=== PATIENT | female | born 1945 | race American Indian/Alaskan Native ===

== ENCOUNTER 2018-02-23 14:34 | Inpatient (IN) | payer MEDICARE, BC, OTHER ==
[2018-02-23 14:35] VITALS: BMI 35.6
--- NOTE | 2018-02-23 15:42 | ED PDOC ---
Arrival/HPI - General Chief Complaint: Abdominal Pain Time Seen by Provider: 02/23/18 14:48 Historian: Patient - History of Present Illness Narrative History of Present Illness (Text): 02/23/18 15:35 73yo female with pmhx of hypertension, hypothyroid, Diabetes present with complaint RUQ abdominal pain that radiates to her back x 4days. States she vomited once on Monday. Her pain was colicky in the beginning, but now constant. +Nausea. States she had a normal BM today. She is s/p cholecystectomy. she denies fever, chills, diarrhea, constipation, urinary symptoms, chest pain, hematemesis, hematochezia, melena, sick contact, any other complaint. Past Medical History - Provider Review Nursing Documentation Reviewed: Yes - Cardiac Hx Hypertension: Yes - Endocrine/Metabolic Hx Hypothyroidism: Yes - Musculoskeletal/Rheumatological Hx Falls: No - Psychiatric Hx Depression: No Hx Emotional Abuse: No Hx Physical Abuse: No Hx Substance Use: No - Past Surgical History Past Surgical History: No Previous - Surgical History Hx Cholecystectomy: Yes (38 yrs ago) - Suicidal Assessment Feels Threatened In Home Enviroment: No Family/Social History - Physician Review Nursing Documentation Reviewed: Yes Family/Social History: Unknown Family HX Smoking Status: Former Smoker Hx Alcohol Use: No Hx Substance Use: No Hx Substance Use Treatment: No Allergies/Home Meds Allergies/Adverse Reactions: Allergies No Known Allergies Allergy (Verified 02/23/18 15:21) Home Medications: Home Meds Medication Instructions Recorded Confirmed Enalapril Maleate 10 mg PO DAILY 06/06/15 06/06/15 Levothyroxine [Synthroid] 50 mcg PO DAILY 06/06/15 06/06/15 Nifedipine [Nifedical Xl] 30 mg PO DAILY 06/06/15 06/06/15 metFORMIN [glucOPHAGE] 02/23/18 Review of Systems - Physician Review All systems were reviewed & negative as marked: Yes - Review of Systems Constitutional: Normal Eyes: Normal ENT: Normal Respiratory: Normal Cardiovascular: Normal Gastrointestinal: Abdominal Pain, Nausea. absent: Constipation, Diarrhea, Vomiting, Hematochezia, Hematemesis Genitourinary Female: Normal Musculoskeletal: Normal Skin: Normal Neurological: Normal Endocrine: Normal Hemo/Lymphatic: Normal Psychiatric: Normal Physical Exam Vital Signs Reviewed: Yes Vital Signs Temp Pulse Resp BP Pulse Ox 02/23/18 22:15 98.2 F 54 L 18 161/77 H 98 02/23/18 22:02 98.9 F 87 18 132/63 96 02/23/18 19:07 98.7 F 82 20 130/53 L 96 02/23/18 15:20 98.8 F 77 18 121/54 L 97 Temperature: Afebrile Blood Pressure: Normal Pulse: Regular Respiratory Rate: Normal Appearance: Positive for: Well-Appearing, Non-Toxic, Comfortable Pain Distress: None Mental Status: Positive for: Alert and Oriented X 3 - Systems Exam Head: Present: Atraumatic, Normocephalic Pupils: Present: PERRL Extroacular Muscles: Present: EOMI Conjunctiva: Present: Normal Mouth: Present: Moist Mucous Membranes Neck: Present: Normal Range of Motion Respiratory/Chest: Present: Clear to Auscultation, Good Air Exchange. No: Respiratory Distress, Accessory Muscle Use Cardiovascular: Present: Regular Rate and Rhythm, Normal S1, S2. No: Murmurs Abdomen: Present: Normal Bowel Sounds, Other (soft). No: Tenderness, Distention , Peritoneal Signs, Rebound, Guarding, McBurney's Point Tender, Rovsing's Sign Present Back: Present: Normal Inspection Upper Extremity: Present: Normal Inspection. No: Cyanosis, Edema Lower Extremity: Present: Normal Inspection. No: Edema Neurological: Present: GCS=15, CN II-XII Intact, Speech Normal Skin: Present: Warm, Dry, Normal Color. No: Rashes Psychiatric: Present: Alert, Oriented x 3, Normal Insight, Normal Concentration Medical Decision Making ED Course and Treatment: 02/23/18 15:43 73yo female who present with complaint of RUQ pain that radiates to her back. Her PE was benign. She states she feels the pain inside. Labs VBG EKG Blood culture Zofran, Pepcid Abdominal/pelvic CT Will reassess 02/23/18 23:38 EKG NSR @ 77bpm with no ST changes. Normal interval Lab was noted with elevated LFt, alk phos, LED and bili Lactate of 2.9 was noted, but pt does not meet SIR criteria. Hepatic panel and hepatic US was added Abdominal/Pelvic CT IMPRESSION: Mild intrahepatic and extrahepatic biliary ductal dilatation noted new compared to the previous exam. The possibility of common bile duct stone cannot be excluded. If clinically warranted further assessment by MRCP is suggested. Otherwise no evidence of acute pathology in the abdomen and pelvis as described above. Prominent sized uterus with small amount of fluid in the endometrial cavity. If clinically warranted non emergent ultrasound examination of the pelvis may be obtained for further assessment. Hepatic US IMPRESSION: No acute findings related to/accounting for the clinical presentation. Additional benign and/or incidental findings described above. Pt will be admitted for further evaluation. Result was FLAKO Shaw and she requested that pt be admitted to Dr. castro and Dr. Whelan consult. Case was DW Dr. castro and he accepted pt for admission Case was FLAKO Whelan Result and plan was DW the pt and she agreed 02/23/18 23:50 - Lab Interpretations Lab Results: 02/23/18 16:30 02/23/18 16:30 Lab Results 02/23/18 16:30: Sodium 142, Chloride 102, Potassium 3.9, Carbon Dioxide 31, Anion Gap 13, BUN 15, Creatinine 0.8, Est GFR ( Amer) > 60, Est GFR (Non- Af Amer) > 60, Random Glucose 175 H, Calcium 9.5, Total Bilirubin 3.0 H, AST 550 H, ALT 374 H, Alkaline Phosphatase 228 H, Lactate Dehydrogenase 1997 H, Total Creatine Kinase 45, Troponin I < 0.01, Total Protein 7.4, Albumin 4.2, Globulin 3.3, Albumin/Globulin Ratio 1.3, Amylase 65, Lipase 69 02/23/18 16:30: PT 12.7 H, INR 1.11, APTT 26.5 02/23/18 16:30: WBC 7.1 D, RBC 4.43, Hgb 12.3, Hct 37.2, MCV 84.0, MCH 27.8, MCHC 33.1, RDW 14.7 H, Plt Count 241, MPV 9.7, Gran % 70.1 H, Lymph % (Auto) 20.3 L, [place] % (Auto) 9.4 H, Eos % (Auto) 0.1 L, Baso % (Auto) 0.1, Gran # 4.97 , Lymph # (Auto) 1.4, [place] # (Auto) 0.7 H, Eos # (Auto) 0.0, Baso # (Auto) 0.01 02/23/18 16:28: pO2 49, VBG pH 7.33, VBG pCO2 56.0, VBG HCO3 29.5 H, VBG Total CO2 31.2 H, VBG O2 Sat (Calc) 80.9 H, VBG Base Excess 2.3 H, VBG Potassium 3.5 L , Sodium 141.0, Chloride 104.0, Glucose 180 H, Lactate 2.9 H, FiO2 21.0, Venous Blood Potassium 3.5 L - RAD Interpretation Radiology Orders: 02/23/18 15:34 ABD & PELVIS IV CONTRAST ONLY [CT] Stat 02/23/18 16:56 HEPATIC [US] Stat - Medication Orders Current Medication Orders: Discontinued Medications Famotidine (Pepcid) 20 mg IVP STAT STA Stop: 02/23/18 15:34 Last Admin: 02/23/18 16:27 Dose: 20 mg IVP Administration Document 02/23/18 16:27 OCS (Rec: 02/23/18 16:27 [id number] Charges for Administration # of IVP Administrations 1 Sodium Chloride (Sodium Chloride 0.9%) 1,000 mls @ 250 mls/hr IV .Q4H ONE Stop: 02/23/18 19:43 Last Admin: 02/23/18 16:27 Dose: 250 mls/hr eMAR Start Stop Document 02/23/18 16:27 OCS (Rec: 02/23/18 16:27 [facility]CS [id number]) Intravenous Solution Start Date 02/23/18 Start Time 16:27 Ondansetron HCl (Zofran Inj) 4 mg IVP STAT STA Stop: 02/23/18 15:34 Last Admin: 02/23/18 16:27 Dose: 4 mg IVP Administration Document 02/23/18 16:27 OCS (Rec: 02/23/18 16:27 OCS [id number]) Charges for Administration # of IVP Administrations 1 Oxycodone/Acetaminophen (Percocet 5/325 Mg Tab) 1 tab PO STAT STA Stop: 02/23/18 19:28 Last Admin: 02/23/18 20:40 Dose: 1 tab MAR Pain Assessment Document 02/23/18 20:40 OCS (Rec: 02/23/18 20:40 [facility]CS [id number]) Pain Reassessment Is this a pain reassessment? Yes Sleep Is patient sleeping during reassessment? No Presence of Pain Presence of Pain Yes Pain Scale Used Pain Scale Used Numeric Location Left, Right or Bilateral Right Pain Location Body Site Abdomen Description Description Constant Intensity of Pain at present 8 Pain Behavior Crying Grasping Site Facial Grimacing Aggravating Factors ADL's Disposition/Present on Arrival - Present on Arrival Any Indicators Present on Arrival: No History of DVT/PE: No History of Uncontrolled Diabetes: No Urinary Catheter: No History of Decub. Ulcer: No History Surgical Site Infection Following: None - Disposition Have Diagnosis and Disposition been Completed?: Yes Diagnosis: Abnormal LFTs, Dilation of biliary tract, Abdominal pain Disposition: HOSPITALIZED Disposition Time: 20:00 Patient Plan: Admission Patient Problems: Current Active Problems Problem Status Onset Abdominal pain Acute Abnormal LFTs Acute Dilation of biliary tract Acute Condition: STABLE
[2018-02-23] MEDS ORDERED: Sodium Chloride 0.9% 1,000 ML IV ONE (15:44)
[2018-02-23 16:32] LABS: VENOUS BLOOD GAS BASE EXCESS 2.3 mmol/L (0.0-2.0); VENOUS BLOOD GAS PO2 49 mm/Hg (30-55); VENOUS BLOOD PH 7.33 (7.32-7.43)
[2018-02-23 16:38] LABS: BASO # 0.01 K/mm3 (0.0-2.0); BASO % 0.1 % (0.0-3.0); EOS % 0.1 % (1.5-5.0); GRAN # 4.97 (1.4-6.5); GRAN % 70.1 % (50.0-68.0); HEMOGLOBIN 12.3 g/dL (12.0-16.0); LYMPH # 1.4 (1.2-3.4); LYMPH % 20.3 % (22.0-35.0); MEAN CORPUSCULAR HEMOGLOBIN 27.8 pg (25.0-35.0); MEAN CORPUSCULAR HGB CONC 33.1 g/dl (31.0-37.0); MEAN PLATELET VOLUME 9.7 fl (7.0-11.0); MONO # 0.7 (0.1-0.6); MONO % 9.4 % (1.0-6.0); RBC 4.43 10^6/uL (3.5-6.1); RED CELL DISTRIBUTION WIDTH 14.7 % (11.5-14.5); WHITE BLOOD COUNT 7.1 10^3/ul (4.5-11.0)
[2018-02-23 16:43] LABS: INR 1.11; PARTIAL THROMBOPLASTIN TIME 26.5 Seconds (25.1-36.5); PROTHROMBIN TIME 12.7 SECONDS (9.4-12.5)
[2018-02-23 16:44] LABS: ALB/GLOB RATIO 1.3 (1.1-1.8); ALBUMIN 4.2 g/dL (3.0-4.8); ALT/SGPT 374 U/L (7-56); AMYLASE 65 U/L (35-125); AST/SGOT 550 U/L (14-36); BLOOD UREA NITROGEN 15 mg/dL (7-21); CALCIUM 9.5 mg/dL (8.4-10.5); GFR NON-AFRICAN AMERICAN > 60; LIPASE 69 U/L (23-300)
[2018-02-23 16:55] LABS: TROPONIN I < 0.01 ng/mL
[2018-02-23] MEDS ORDERED: Iohexol 350 MG/100 ML VIAL ONE (17:17)
--- NOTE | 2018-02-23 18:27 | US ---
Date of service: 02/23/2018 HISTORY: Elevated LFT COMPARISON: None. TECHNIQUE: Sonographic evaluation of the right upper quadrant of the abdomen. FINDINGS: LIVER: Measures 15.2 cm in length. Hepatopedal blood flow. Fatty infiltration, heterogeneous echo characteristics of the liver. Manifest ultrasonographically as increased echogenicity of the liver parenchyma. No mass. No intrahepatic bile duct dilatation. GALLBLADDER: Status post cholecystectomy. No abnormality is seen in the gallbladder fossa. COMMON BILE DUCT: Measures 12.5 mm. No stones. Dilated duct likely related to prior cholecystectomy. No dilated intrahepatic biliary radicles. PANCREAS: Unremarkable as visualized. No mass. No ductal dilatation. RIGHT KIDNEY: Measures 4.6 x 11.2 cm in length. Normal echogenicity. No calculus, mass, or hydronephrosis. AORTA: Obscured by overlying bowel gas. Non diagnostic assessment of the abdominal aorta IVC: Unremarkable. OTHER FINDINGS: None . IMPRESSION: No acute findings related to/accounting for the clinical presentation. Additional benign and/or incidental findings described above.
[2018-02-23 18:28] LABS: PH,URINE 7.5 (4.7-8.0); URINE BILIRUBIN NEGATIVE (NEGATIVE); URINE BLOOD NEGATIVE (NEGATIVE); URINE GLUCOSE (UA) NEGATIVE (NEGATIVE); URINE LEUKOCYTE ESTERASE NEGATIVE Leu/uL (NEGATIVE); URINE PROTEIN NEGATIVE mg/dL (<30 mg/dL)
[2018-02-23 18:29] LABS: URINE APPEARANCE CLEAR (CLEAR); URINE COLOR YELLOW (YELLOW)
--- NOTE | 2018-02-23 18:54 | CT ---
Date of service: 02/23/2018 PROCEDURE: CT Abdomen and Pelvis with contrast HISTORY: RUQ pain COMPARISON: Comparison is made to the previous study dated 06/06/2015. Comparison is also made with the previous ultrasound dated 02/23/2018 TECHNIQUE: Contrast dose: 100 mL of Omnipaque 350 Radiation dose: Total exam DLP = 1148.9 mGy-cm. This CT exam was performed using one or more of the following dose reduction techniques: Automated exposure control, adjustment of the mA and/or kV according to patient size, and/or use of iterative reconstruction technique. FINDINGS: LOWER THORAX: No evidence of acute pathology at the lung bases. No evidence of pleural effusion. LIVER: Mild hepatomegaly is again noted. There is mild intrahepatic biliary ductal dilatation noted new compared to the previous exam. GALLBLADDER AND BILE DUCTS: Status post cholecystectomy. The common bile duct is mildly dilated. PANCREAS: Unremarkable. No gross lesion or ductal dilatation. SPLEEN: Unremarkable. ADRENALS: Again noted is heterogeneous slightly low-attenuation 1.2 centimeter nodule at the left adrenal gland which has not significantly changed since the previous study likely benign. KIDNEYS AND URETERS: The kidneys enhance symmetrically. No evidence of hydronephrosis. Left renal cyst is again noted measures 2.3 centimeter in the current study. VASCULATURE: Unremarkable. No aortic aneurysm. BOWEL: Unremarkable. No obstruction. No gross mural thickening. APPENDIX: No evidence of appendicitis. PERITONEUM: Unremarkable. No free fluid. No free air. LYMPH NODES: Unremarkable. No enlarged lymph nodes. BLADDER: Unremarkable. REPRODUCTIVE: The uterus is slightly prominent in size. There is small amount of fluid noted in the endometrial cavity of uncertain etiology. BONES: No acute fracture. OTHER FINDINGS: None. IMPRESSION: Mild intrahepatic and extrahepatic biliary ductal dilatation noted new compared to the previous exam. The possibility of common bile duct stone cannot be excluded. If clinically warranted further assessment by MRCP is suggested. Otherwise no evidence of acute pathology in the abdomen and pelvis as described above. Prominent sized uterus with small amount of fluid in the endometrial cavity. If clinically warranted non emergent ultrasound examination of the pelvis may be obtained for further assessment.
[2018-02-23] MEDS ORDERED: Oxycodone/Acetaminophen 5/325 mg Tab PO STA (19:27)
--- NOTE | 2018-02-23 20:58 | CARD ---
APPROVED REPORT Date of service: 02/23/2018 EKG Measurement Heart [id number] <Conclusion> Normal sinus rhythm with sinus arrhythmia Low voltage QRS Borderline ECG
[2018-02-23 23:16] LABS: VENOUS BLOOD GAS BASE EXCESS 0.9 mmol/L (0.0-2.0); VENOUS BLOOD GAS PO2 40 mm/Hg (30-55); VENOUS BLOOD PH 7.34 (7.32-7.43)
[2018-02-24 02:54] LABS: VENOUS BLOOD GAS BASE EXCESS 2.7 mmol/L (0.0-2.0); VENOUS BLOOD GAS PO2 41 mm/Hg (30-55); VENOUS BLOOD PH 7.41 (7.32-7.43)
[2018-02-24] MEDS ORDERED: Sodium Chloride 0.9% 100 ML IV SCH (11:30)
[2018-02-24 11:42] LABS: HEPATITIS B SURFACE AG Negative (NEGATIVE)
[2018-02-24 11:48] LABS: HEPATITIS A IGM NEGATIVE (NEGATIVE); HEPATITIS B CORE AB NEGATIVE (NEGATIVE)
[2018-02-24 12:00] LABS: HEPATITIS C ANTIBODY NEGATIVE (NEGATIVE)
[2018-02-24] MEDS: NIFEdipine 30 mg ER Tab PO SCH (13:36)
[2018-02-24] MEDS: Sodium Chloride 0.9% 1,000 ML IV SCH (13:38)
[2018-02-24 13:54] LABS: BASO # 0.02 K/mm3 (0.0-2.0); BASO % 0.3 % (0.0-3.0); EOS % 0.7 % (1.5-5.0); GRAN # 3.93 (1.4-6.5); GRAN % 64.3 % (50.0-68.0); HEMOGLOBIN 12.3 g/dL (12.0-16.0); LYMPH # 1.5 (1.2-3.4); LYMPH % 23.7 % (22.0-35.0); MEAN CELL VOLUME 82.5 fl (80.0-105.0); MEAN CORPUSCULAR HGB CONC 33.9 g/dl (31.0-37.0); MONO # 0.7 (0.1-0.6); RBC 4.4 10^6/uL (3.5-6.1); RED CELL DISTRIBUTION WIDTH 14.4 % (11.5-14.5); WHITE BLOOD COUNT 6.1 10^3/ul (4.5-11.0)
[2018-02-24 14:24] LABS: ALB/GLOB RATIO 1.2 (1.1-1.8); ALBUMIN 4.2 g/dL (3.0-4.8); ALT/SGPT 855 U/L (7-56); AST/SGOT 688 U/L (14-36); BLOOD UREA NITROGEN 10 mg/dL (7-21); CALCIUM 9.2 mg/dL (8.4-10.5); GFR NON-AFRICAN AMERICAN > 60
[2018-02-24] MEDS: HYDROmorphone 0.5 mg/0.5 ml ISec IVP PRN (14:47)
--- NOTE | 2018-02-24 15:09 | CP.PCM.CON ---
<DeidresoniafeiChristinaChandler - Last Filed: 02/24/18 15:37> History of Present Illness - History of Present Illness History of Present Illness: GI Fellow PGY4, Consult note. Chica Galarza is a very pleasant 73yr young F with hx of DM, HTN presenting with progressive RUQ pain. She states the pain started Monday after eating a meal and resolved. The pain occured again and resolved. The pain again started Monday and has been constant since that time. She states the pain is similar to her previous gallstones when she had it removed 35yrs ago. It can be very severe and radiates to her back. + associated non-bloody vomiting. Denies diarrhea, fever, chills, skin changes, Today, she had some food that made her pain worse. Admits her urine is jesenia color. PMD starting IV fluids. PMHx - as above. Also, ?carotid stenosis her doctor is following. PSHx - Cholecystectomy 35yrs ago. Colonoscopy 10yrs ago, reports it to be normal. FMHx - unremarkable SocHx - quit smoking 3yrs ago. Denies etoh. 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 12pt ROS negative except for above. Past Patient History - Past Social History Smoking Status: Former Smoker - CARDIAC Hx Hypercholesterolemia: Yes Hx Hypertension: Yes - ENDOCRINE/METABOLIC Hx Diabetes Mellitus Type 2: Yes Hx Hypothyroidism: Yes - MUSCULOSKELETAL/RHEUMATOLOGICAL Hx Arthritis: Yes Hx Falls: No - PSYCHIATRIC Hx Depression: No Hx Emotional Abuse: No Hx Physical Abuse: No Hx Substance Use: No - SURGICAL HISTORY Hx Cholecystectomy: Yes (38 yrs ago) Other/Comment: tubal ligataion Meds Allergies/Adverse Reactions: Allergies Allergy/AdvReac Type Severity Reaction Status Date / Time No Known Allergies Allergy Verified 02/23/18 15:21 - Medications Medications: Current Medications Hydromorphone HCl (Dilaudid) 0.5 mg IVP Q4H PRN PRN Reason: Pain, moderate (4-7) Last Admin: 02/24/18 14:47 Dose: 0.5 mg Sodium Chloride (Sodium Chloride 0.9%) 1,000 mls @ 80 mls/hr IV .[id number] THUAN Last Admin: 02/24/18 13:38 Dose: 80 mls/hr Levothyroxine Sodium (Synthroid) 50 mcg PO 0600 THUAN Lisinopril (Zestril) 10 mg PO DAILY [facility] Last Admin: 02/24/18 13:37 Dose: 10 mg Metformin HCl (Glucophage) 500 mg PO BIDWM [facility] Nifedipine (Procardia Xl) 30 mg PO DAILY [facility] Last Admin: 02/24/18 13:36 Dose: 30 mg Ondansetron HCl (Zofran Inj) 4 mg IVP Q8H PRN PRN Reason: Nausea/Vomiting Last Admin: 02/24/18 13:50 Dose: 4 mg Physical Exam - Constitutional Appears: Non-toxic, No Acute Distress Additional comments: colicky - Head Exam Head Exam: NORMAL INSPECTION - Eye Exam Eye Exam: Normal appearance, Scleral icterus Pupil Exam: NORMAL ACCOMODATION - ENT Exam ENT Exam: Mucous Membranes Moist, Normal Exam - Respiratory Exam Respiratory Exam: Clear to Auscultation Bilateral, NORMAL BREATHING PATTERN - Cardiovascular Exam Cardiovascular Exam: REGULAR RHYTHM, +S1, +S2 - GI/Abdominal Exam GI & Abdominal Exam: Normal Bowel Sounds, Soft, Tenderness Additional comments: RUQ tenderness to mild palpation - Extremities Exam Extremities exam: Positive for: normal inspection - Neurological Exam Neurological exam: Alert, Oriented x3 - Psychiatric Exam Psychiatric exam: Normal Affect, Normal Mood - Skin Skin Exam: Dry, Normal Color Results - Vital Signs Recent Vital Signs: Last Vital Signs Temp 98.6 F 02/24/18 07:46 Pulse 83 02/24/18 13:37 Resp 18 02/24/18 07:46 BP 152/64 H 02/24/18 13:37 Pulse Ox 95 02/24/18 07:46 - Labs Result Diagrams: 02/24/18 13:50 02/24/18 13:00 Labs: Laboratory Results - last 24 hr 02/23/18 02/23/18 02/24/18 18:25 23:08 02:30 WBC RBC Hgb Hct MCV MCH MCHC RDW Plt Count MPV Gran % Lymph % (Auto) Bates % (Auto) Eos % (Auto) Baso % (Auto) Gran # Lymph # (Auto) Bates # (Auto) Eos # (Auto) Baso # (Auto) pO2 40 41 VBG pH 7.34 7.41 VBG pCO2 51.0 44.0 VBG HCO3 27.5 27.9 VBG Total CO2 29.1 H 29.3 H VBG O2 Sat (Calc) 71.0 H 75.6 H VBG Base Excess 0.9 2.7 H VBG Potassium 3.6 3.5 L Sodium 139.0 137.0 Chloride 102.0 102.0 Glucose 157 H 160 H Lactate 2.0 1.7 FiO2 21.0 21.0 Potassium Carbon Dioxide Anion Gap BUN Creatinine Est GFR ( Amer) Est GFR (Non-Af Amer) POC Glucose (mg/dL) Random Glucose Calcium Phosphorus Magnesium Total Bilirubin AST ALT Alkaline Phosphatase Total Protein Albumin Globulin Albumin/Globulin Ratio Venous Blood Potassium 3.6 3.5 L Urine Color Yellow Urine Appearance Clear Urine pH 7.5 Ur Specific [place] 1.015 Urine Protein Negative Urine Glucose (UA) Negative Urine Ketones Negative Urine Blood Negative Urine Nitrate Negative Urine Bilirubin Negative Urine Urobilinogen 4.0 H Ur Leukocyte Esterase Negative 02/24/18 02/24/18 02/24/18 06:41 11:13 13:00 WBC RBC Hgb Hct MCV MCH MCHC RDW Plt Count MPV Gran % Lymph % (Auto) Bates % (Auto) Eos % (Auto) Baso % (Auto) Gran # Lymph # (Auto) Bates # (Auto) Eos # (Auto) Baso # (Auto) pO2 VBG pH VBG pCO2 VBG HCO3 VBG Total CO2 VBG O2 Sat (Calc) VBG Base Excess VBG Potassium Sodium 137 Chloride 98 Glucose Lactate FiO2 Potassium 3.1 L Carbon Dioxide 28 Anion Gap 14 BUN 10 Creatinine 0.7 Est GFR ( Amer) > 60 Est GFR (Non-Af Amer) > 60 POC Glucose (mg/dL) 132 H 169 H Random Glucose 190 H Calcium 9.2 Phosphorus 3.6 Magnesium 2.1 Total Bilirubin 5.8 H AST 688 H D ALT 855 H Alkaline Phosphatase 283 H D Total Protein 7.5 Albumin 4.2 Globulin 3.4 Albumin/Globulin Ratio 1.2 Venous Blood Potassium Urine Color Urine Appearance Urine pH Ur Specific [place] Urine Protein Urine Glucose (UA) Urine Ketones Urine Blood Urine Nitrate Urine Bilirubin Urine Urobilinogen Ur Leukocyte Esterase 02/24/18 13:50 WBC 6.1 RBC 4.40 Hgb 12.3 Hct 36.3 MCV 82.5 MCH 28.0 MCHC 33.9 RDW 14.4 Plt Count 234 MPV 10.0 Gran % 64.3 Lymph % (Auto) 23.7 Bates % (Auto) 11.0 H Eos % (Auto) 0.7 L Baso % (Auto) 0.3 Gran # 3.93 Lymph # (Auto) 1.5 Bates # (Auto) 0.7 H Eos # (Auto) 0.0 Baso # (Auto) 0.02 pO2 VBG pH VBG pCO2 VBG HCO3 VBG Total CO2 VBG O2 Sat (Calc) VBG Base Excess VBG Potassium Sodium Chloride Glucose Lactate FiO2 Potassium Carbon Dioxide Anion Gap BUN Creatinine Est GFR ( Amer) Est GFR (Non-Af Amer) POC Glucose (mg/dL) Random Glucose Calcium Phosphorus Magnesium Total Bilirubin AST ALT Alkaline Phosphatase Total Protein Albumin Globulin Albumin/Globulin Ratio Venous Blood Potassium Urine Color Urine Appearance Urine pH Ur Specific [place] Urine Protein Urine Glucose (UA) Urine Ketones Urine Blood Urine Nitrate Urine Bilirubin Urine Urobilinogen Ur Leukocyte Esterase Assessment & Plan - Assessment and Plan (Free Text) Assessment: 73F with hx of cholecystectomy presenting with RUQ abdominal pain and elevated liver tests. #Acute abdominal pain #Elevated liver enzymes #DM #HTN #Hx of Cholecystectomy #Elevated LDH PLAN: -Unclear etiology of presentation. -MRCP/MRI to better define ampulla anatomy -Follow liver tests -Order direct bili, repeat LDH -Hold metformin (recent contrast) -NPO -IVF, pain mngmt per primary - Date & Time Date: 02/24/18 Time: 15:37 <Rebecca Whelan V - Last Filed: 02/24/18 21:35> Meds - Medications Medications: Current Medications Hydromorphone HCl (Dilaudid) 0.5 mg IVP Q4H PRN PRN Reason: Pain, moderate (4-7) Last Admin: 02/24/18 14:47 Dose: 0.5 mg Sodium Chloride (Sodium Chloride 0.9%) 1,000 mls @ 80 mls/hr IV .[id number] THUAN Last Admin: 02/24/18 13:38 Dose: 80 mls/hr Potassium Chloride (Potassium Chloride 10 Meq/100 Ml) 10 meq in 100 mls @ 50 mls/hr IVPB Q2H THUAN Stop: 02/24/18 22:29 Levothyroxine Sodium (Synthroid) 50 mcg PO 0600 [facility] Lisinopril (Zestril) 10 mg PO DAILY THUAN Last Admin: 02/24/18 13:37 Dose: 10 mg Nifedipine (Procardia Xl) 30 mg PO DAILY [facility] Last Admin: 02/24/18 13:36 Dose: 30 mg Ondansetron HCl (Zofran Inj) 4 mg IVP Q8H PRN PRN Reason: Nausea/Vomiting Last Admin: 02/24/18 13:50 Dose: 4 mg Results - Vital Signs Recent Vital Signs: Last Vital Signs Temp 99.4 F 02/24/18 17:30 Pulse 114 H 02/24/18 17:30 Resp 20 02/24/18 17:30 BP 123/56 L 02/24/18 17:30 Pulse Ox 91 L 02/24/18 17:30 - Labs Result Diagrams: 02/24/18 13:50 02/24/18 13:00 Labs: Laboratory Results - last 24 hr 02/23/18 02/24/18 02/24/18 23:08 02:30 06:41 WBC RBC Hgb Hct MCV MCH MCHC RDW Plt Count MPV Gran % Lymph % (Auto) Bates % (Auto) Eos % (Auto) Baso % (Auto) Gran # Lymph # (Auto) Bates # (Auto) Eos # (Auto) Baso # (Auto) pO2 40 41 VBG pH 7.34 7.41 VBG pCO2 51.0 44.0 VBG HCO3 27.5 27.9 VBG Total CO2 29.1 H 29.3 H VBG O2 Sat (Calc) 71.0 H 75.6 H VBG Base Excess 0.9 2.7 H VBG Potassium 3.6 3.5 L Sodium 139.0 137.0 Chloride 102.0 102.0 Glucose 157 H 160 H Lactate 2.0 1.7 FiO2 21.0 21.0 Potassium Carbon Dioxide Anion Gap BUN Creatinine Est GFR ( Amer) Est GFR (Non-Af Amer) POC Glucose (mg/dL) 132 H Random Glucose Calcium Phosphorus Magnesium Total Bilirubin Direct Bilirubin AST ALT Alkaline Phosphatase Lactate Dehydrogenase Total Protein Albumin Globulin Albumin/Globulin Ratio Venous Blood Potassium 3.6 3.5 L 02/24/18 02/24/18 02/24/18 11:13 13:00 13:50 WBC 6.1 RBC 4.40 Hgb 12.3 Hct 36.3 MCV 82.5 MCH 28.0 MCHC 33.9 RDW 14.4 Plt Count 234 MPV 10.0 Gran % 64.3 Lymph % (Auto) 23.7 Bates % (Auto) 11.0 H Eos % (Auto) 0.7 L Baso % (Auto) 0.3 Gran # 3.93 Lymph # (Auto) 1.5 Bates # (Auto) 0.7 H Eos # (Auto) 0.0 Baso # (Auto) 0.02 pO2 VBG pH VBG pCO2 VBG HCO3 VBG Total CO2 VBG O2 Sat (Calc) VBG Base Excess VBG Potassium Sodium 137 Chloride 98 Glucose Lactate FiO2 Potassium 3.1 L Carbon Dioxide 28 Anion Gap 14 BUN 10 Creatinine 0.7 Est GFR ( Amer) > 60 Est GFR (Non-Af Amer) > 60 POC Glucose (mg/dL) 169 H Random Glucose 190 H Calcium 9.2 Phosphorus 3.6 Magnesium 2.1 Total Bilirubin 5.8 H Direct Bilirubin 3.9 H AST 688 H D ALT 855 H Alkaline Phosphatase 283 H D Lactate Dehydrogenase 2031 H Total Protein 7.5 Albumin 4.2 Globulin 3.4 Albumin/Globulin Ratio 1.2 Venous Blood Potassium 02/24/18 02/24/18 16:11 17:34 WBC RBC Hgb Hct MCV MCH MCHC RDW Plt Count MPV Gran % Lymph % (Auto) Bates % (Auto) Eos % (Auto) Baso % (Auto) Gran # Lymph # (Auto) Bates # (Auto) Eos # (Auto) Baso # (Auto) pO2 VBG pH VBG pCO2 VBG HCO3 VBG Total CO2 VBG O2 Sat (Calc) VBG Base Excess VBG Potassium Sodium Chloride Glucose Lactate FiO2 Potassium Carbon Dioxide Anion Gap BUN Creatinine Est GFR ( Amer) Est GFR (Non-Af Amer) POC Glucose (mg/dL) 157 H 129 H Random Glucose Calcium Phosphorus Magnesium Total Bilirubin Direct Bilirubin AST ALT Alkaline Phosphatase Lactate Dehydrogenase Total Protein Albumin Globulin Albumin/Globulin Ratio Venous Blood Potassium Attending/Attestation - Attestation I have personally seen and examined this patient.: Yes I have fully participated in the care of the patient.: Yes I have reviewed all pertinent clinical information: Yes Notes (Text): This is an addendum to GI consult report dictated by the GI Fellow.The patient was seen and examined earlier. Medical records, lab studies, imagings were reviewed. Last 24 hours events reviewed. Agreed with the above treatment plan as outlined in GI Fellow 's notes with the addition of the following This patient was admitted with right side abdominal pain status post cholecystectomy Dilated CBD The CT scan was reviewed CBD dilation extends towards ampulla. No obvious stricture noted No obvious mass in pancreas noted though the CT done was not with pancreatic protocol Patient was on metformin Received eric contrast Would discontinue metformin LDH significantly elevated Etiology unclear Will repeat LDH Would requested MRCP 02/24/18 21:31
[2018-02-24 15:56] LABS: BILIRUBIN,DIRECT 3.9 mg/dL (0.0-0.4)
--- NOTE | 2018-02-24 23:56 | HP ---
HISTORY OF PRESENT ILLNESS: Ms. Galarza is a 73-year-old female admitted to the hospital with upper abdominal pain, nausea and vomiting. CAT scan of the abdomen showed dilatation of biliary duct. Bilirubin elevated to 3. Denies any bleeding from any site. She is status post cholecystectomy. She has history of hypertension, blood pressure controlled with current medication; hypothyroidism, currently controlled with current medication dose. PAST MEDICAL HISTORY: Hypertension, hypothyroidism. PAST SURGICAL HISTORY: Cholecystectomy 38 years ago. PERSONAL HISTORY: Former smoker. No history of alcohol abuse. ALLERGIES: NO KNOWN DRUG ALLERGIES. HOME MEDICATION: Enalapril 10 mg daily, Synthroid 50 mcg daily, nifedipine 30 mg daily, metformin 500 daily. REVIEW OF SYSTEMS: As per HPI. Rest of 12-point review of systems reviewed, negative. PHYSICAL EXAMINATION: GENERAL: Comfortable in bed, no acute distress. VITAL SIGNS: Temperature 98.2, heart rate 54 per minute, respiratory rate 18 per minute, blood pressure 160/70, pulse ox is 98% room air. HEENT: No pallor. NECK: No lymphadenopathy. CHEST: Air entry present and equal bilateral. No added sounds. CARDIOVASCULAR: S1 and S2 normal. No murmur. No gallop. ABDOMEN: Soft, nontender. No hepatosplenomegaly. EXTREMITIES: No edema. LABORATORY DATA: White count 7.1, hemoglobin 12.3, hematocrit 37.2, platelet 241. Sodium 142, potassium 3.9, BUN 15, creatinine 0.8, glucose 145. ASSESSMENT: Right upper abdominal pain; dilatation of biliary duct, jaundice, Nausea, vomiting hypokalemia PLAN: bilirubin elevated to 3, liver enzymes mildly elevated. Possibility of pancreatic mass cannot be ruled out. GI consultation with Dr. Whelan requested. MRCP ordered for further evaluation and treatment. KCL 2 riders . IV fluid at 80 mL an hour, Zofran p.r.n. for nausea 4 mg IV every 6 hours. We will resume the home meds, nifedipine 30 daily, more Dilaudid 0.5 mg every 4 hours p.r.n. for upper abdominal pain. N.p.o. until further evaluation by GI. We will continue to monitor blood counts closely and chemistries. Belkis Olvera MD [facility]eslie
[2018-02-25] MEDS: Levothyroxine 50 MCG TAB PO SCH (05:22)
[2018-02-25] MEDS: Sodium Chloride 0.9% 1,000 ML IV SCH (05:33)
[2018-02-25 06:55] LABS: BASO # 0.01 K/mm3 (0.0-2.0); BASO % 0.2 % (0.0-3.0); EOS # 0.1 (0.0-0.7); EOS % 1.4 % (1.5-5.0); GRAN # 3.68 (1.4-6.5); GRAN % 62.4 % (50.0-68.0); HEMOGLOBIN 11.2 g/dL (12.0-16.0); LYMPH # 1.1 (1.2-3.4); LYMPH % 19.4 % (22.0-35.0); MEAN CELL VOLUME 82.6 fl (80.0-105.0); MEAN CORPUSCULAR HEMOGLOBIN 27.5 pg (25.0-35.0); MEAN CORPUSCULAR HGB CONC 33.3 g/dl (31.0-37.0); MEAN PLATELET VOLUME 9.6 fl (7.0-11.0); MONO % 16.6 % (1.0-6.0); RBC 4.07 10^6/uL (3.5-6.1); RED CELL DISTRIBUTION WIDTH 14.6 % (11.5-14.5); WHITE BLOOD COUNT 5.9 10^3/ul (4.5-11.0)
[2018-02-25 07:01] LABS: INR 1.37; PROTHROMBIN TIME 15.8 SECONDS (9.4-12.5)
[2018-02-25 07:17] LABS: ALB/GLOB RATIO 1.1 (1.1-1.8); ALBUMIN 3.5 g/dL (3.0-4.8); ALT/SGPT 563 U/L (7-56); AMYLASE 40 U/L (35-125); AST/SGOT 341 U/L (14-36); BLOOD UREA NITROGEN 7 mg/dL (7-21); CALCIUM 8.5 mg/dL (8.4-10.5); GFR NON-AFRICAN AMERICAN > 60; LIPASE 28 U/L (23-300)
--- NOTE | 2018-02-25 09:16 | CP.PCM.PN ---
Subjective - Date & Time of Evaluation Date of Evaluation: 02/25/18 Time of Evaluation: 09:13 - Subjective Subjective: HISTORY OF PRESENT ILLNESS: Ms. Galarza is a 73-year-old female admitted to the hospital with upper abdominal pain, nausea and vomiting. CAT scan of the abdomen showed dilatation of biliary duct. Bilirubin elevated to 3. Denies any bleeding from any site. She is status post cholecystectomy. She has history of hypertension, blood pressure controlled with current medication; hypothyroidism, currently controlled with current medication dose. Bilurubin increased today. MRCP pending. NPO, on IV fluids. PAST MEDICAL HISTORY: Hypertension, hypothyroidism. PAST SURGICAL HISTORY: Cholecystectomy 38 years ago. PERSONAL HISTORY: Former smoker. No history of alcohol abuse. ALLERGIES: NO KNOWN DRUG ALLERGIES. HOME MEDICATION: reviewed. REVIEW OF SYSTEMS: As per HPI. Rest of 12-point review of systems reviewed, negative. PHYSICAL EXAMINATION: GENERAL: Comfortable in bed, no acute distress. VITAL SIGNS: reviewed. HEENT: No pallor. NECK: No lymphadenopathy. CHEST: Air entry present and equal bilateral. No added sounds. CARDIOVASCULAR: S1 and S2 normal. No murmur. No gallop. ABDOMEN: Soft, nontender. No hepatosplenomegaly. EXTREMITIES: No edema. LABORATORY DATA: reviewed. ASSESSMENT: Right upper abdominal pain; dilatation of biliary duct, jaundice, Nausea, vomiting hypokalemia PLAN: bilirubin increased today, liver enzymes improved. GI consultation with Dr. Whelan requested. MRCP ordered for further evaluation and treatment. KCL 2 riders . IV fluid at 80 mL an hour, Zofran p.r.n. for nausea 4 mg IV every 6 hours. We will resume the home meds, nifedipine 30 daily, more Dilaudid 0.5 mg every 4 hours p.r.n. for upper abdominal pain. N.p.o. as per GI. We will continue to monitor blood counts closely and chemistries. CA 19.9 will be ordered. Belkis Olvera MD 02/25/2018 Objective - Vital Signs/Intake and Output Vital Signs (last 24 hours): Temp Pulse Resp BP Pulse Ox 99 F 80 18 118/64 98 02/25/18 08:00 02/25/18 08:00 02/25/18 08:00 02/25/18 08:00 02/25/18 08:00 Intake and Output: 02/25/18 02/25/18 06:59 18:59 Intake Total 120 120 Balance 120 120 - Medications Medications: Current Medications Hydromorphone HCl (Dilaudid) 0.5 mg IVP Q4H PRN PRN Reason: Pain, moderate (4-7) Last Admin: 02/24/18 14:47 Dose: 0.5 mg Sodium Chloride (Sodium Chloride 0.9%) 1,000 mls @ 80 mls/hr IV .[id number] [facility] Last Admin: 02/25/18 05:33 Dose: 80 mls/hr Potassium Chloride (Potassium Chloride 10 Meq/100 Ml) 10 meq in 100 mls @ 50 mls/hr IVPB Q2H [facility] Stop: 02/25/18 13:14 Levothyroxine Sodium (Synthroid) 50 mcg PO 0600 [facility] Last Admin: 02/25/18 05:22 Dose: 50 mcg Lisinopril (Zestril) 10 mg PO DAILY [facility] Last Admin: 02/24/18 13:37 Dose: 10 mg Nifedipine (Procardia Xl) 30 mg PO DAILY [facility] Last Admin: 02/24/18 13:36 Dose: 30 mg Ondansetron HCl (Zofran Inj) 4 mg IVP Q8H PRN PRN Reason: Nausea/Vomiting Last Admin: 02/24/18 13:50 Dose: 4 mg - Labs Labs: 02/25/18 06:00 02/25/18 06:00 PT 15.8 SECONDS (9.4-12.5) H 02/25/18 06:00 INR 1.37 02/25/18 06:00 APTT 26.5 Seconds (25.1-36.5) 02/23/18 16:30
--- NOTE | 2018-02-25 09:49 | CP.PCM.PN ---
<Chandler Del Rosario - Last Filed: 02/25/18 14:33> Subjective - Date & Time of Evaluation Date of Evaluation: 02/25/18 Time of Evaluation: 09:47 - Subjective Subjective: GI Fellow PGY4, progress note. Patient is feeling better today, less abdominal pain. She was able to tolerate diet this AM without pain. Objective - Vital Signs/Intake and Output Vital Signs (last 24 hours): Temp Pulse Resp BP Pulse Ox 99 F 80 18 118/64 98 02/25/18 08:00 02/25/18 08:00 02/25/18 08:00 02/25/18 08:00 02/25/18 08:00 Intake and Output: 02/25/18 02/25/18 06:59 18:59 Intake Total 120 120 Balance 120 120 - Medications Medications: Current Medications Hydromorphone HCl (Dilaudid) 0.5 mg IVP Q4H PRN PRN Reason: Pain, moderate (4-7) Last Admin: 02/24/18 14:47 Dose: 0.5 mg Sodium Chloride (Sodium Chloride 0.9%) 1,000 mls @ 80 mls/hr IV .[id number] [facility] Last Admin: 02/25/18 05:33 Dose: 80 mls/hr Potassium Chloride (Potassium Chloride 10 Meq/100 Ml) 10 meq in 100 mls @ 50 mls/hr IVPB Q2H [facility] Stop: 02/25/18 13:14 Levothyroxine Sodium (Synthroid) 50 mcg PO 0600 [facility] Last Admin: 02/25/18 05:22 Dose: 50 mcg Lisinopril (Zestril) 10 mg PO DAILY [facility] Last Admin: 02/24/18 13:37 Dose: 10 mg Nifedipine (Procardia Xl) 30 mg PO DAILY [facility] Last Admin: 02/24/18 13:36 Dose: 30 mg Ondansetron HCl (Zofran Inj) 4 mg IVP Q8H PRN PRN Reason: Nausea/Vomiting Last Admin: 02/24/18 13:50 Dose: 4 mg - Labs Labs: 02/25/18 06:00 02/25/18 06:00 PT 15.8 SECONDS (9.4-12.5) H 02/25/18 06:00 INR 1.37 02/25/18 06:00 APTT 26.5 Seconds (25.1-36.5) 02/23/18 16:30 - Constitutional Appears: Non-toxic, No Acute Distress - Head Exam Head Exam: NORMAL INSPECTION - Eye Exam Eye Exam: Normal appearance - ENT Exam ENT Exam: Mucous Membranes Moist - Respiratory Exam Respiratory Exam: Clear to Ausculation Bilateral, NORMAL BREATHING PATTERN - Cardiovascular Exam Cardiovascular Exam: REGULAR RHYTHM, +S1, +S2 - GI/Abdominal Exam GI & Abdominal Exam: Soft, Normal Bowel Sounds. absent: Tenderness - Extremities Exam Extremities Exam: Normal Inspection - Neurological Exam Neurological Exam: Alert, Awake, Oriented x3 - Psychiatric Exam Psychiatric exam: Normal Affect, Normal Mood - Skin Skin Exam: Normal Color Assessment and Plan - Assessment and Plan (Free Text) Assessment: 73F with hx of cholecystectomy presenting with RUQ abdominal pain and elevated liver tests. #Acute abdominal pain #Elevated liver enzymes #DM #HTN #Hx of Cholecystectomy #Elevated LDH PLAN: -Unclear etiology of presentation. -MRCP/MRI to better define ampulla anatomy, read is pending -Follow liver tests -Hold metformin (recent contrast) -CLD. NPO after breakfast tomorrow for possible ERCP. -IVF, pain mngmt per primary <Tip,Kovil V - Last Filed: 02/26/18 00:50> Objective - Vital Signs/Intake and Output Vital Signs (last 24 hours): Temp Pulse Resp BP Pulse Ox 97.7 F 70 16 114/53 L 97 02/25/18 15:42 02/25/18 15:42 02/25/18 15:42 02/25/18 15:42 02/25/18 15:42 Intake and Output: 02/25/18 02/26/18 18:59 06:59 Intake Total 540 Balance 540 - Medications Medications: Current Medications Hydromorphone HCl (Dilaudid) 0.5 mg IVP Q4H PRN PRN Reason: Pain, moderate (4-7) Last Admin: 02/24/18 14:47 Dose: 0.5 mg Sodium Chloride (Sodium Chloride 0.9%) 1,000 mls @ 80 mls/hr IV .[id number] [facility] Last Admin: 02/25/18 05:33 Dose: 80 mls/hr Levothyroxine Sodium (Synthroid) 50 mcg PO 0600 [facility] Last Admin: 02/25/18 05:22 Dose: 50 mcg Lisinopril (Zestril) 10 mg PO DAILY [facility] Last Admin: 02/25/18 10:45 Dose: 10 mg Nifedipine (Procardia Xl) 30 mg PO DAILY [facility] Last Admin: 02/25/18 10:46 Dose: 30 mg Ondansetron HCl (Zofran Inj) 4 mg IVP Q8H PRN PRN Reason: Nausea/Vomiting Last Admin: 02/24/18 13:50 Dose: 4 mg - Labs Labs: 02/25/18 06:00 02/25/18 06:00 PT 15.8 SECONDS (9.4-12.5) H 02/25/18 06:00 INR 1.37 02/25/18 06:00 APTT 26.5 Seconds (25.1-36.5) 02/23/18 16:30 Attending/Attestation - Attestation I have personally seen and examined this patient.: Yes I have fully participated in the care of the patient.: Yes I have reviewed all pertinent clinical information, including history, physical exam and plan: Yes Notes (Text): This is an addendum to GI progress report dictated by the GI Fellow.The patient was seen and examined earlier. Medical records, lab studies, imagings were reviewed. Last 24 hours events reviewed. Agreed with the above treatment plan as outlined in GI Fellow 's notes with the addition of the following Patient feeling much better Abdominal pain significantly subsided Mild tenderness on depalpation LFT shows upward trend MRCP preliminary reviewed suggestive of multiple CBD stones Will schedule for ERCP after reviewing the official MRCP report 02/25/18 20:08 02/26/18 00:47
[2018-02-25] MEDS: NIFEdipine 30 mg ER Tab PO SCH (10:46)
--- NOTE | 2018-02-25 16:25 | MRI ---
Date of service: 02/25/2018 PROCEDURE: Magnetic Resonance Cholangiopancreatography HISTORY: COMPARISON: None available. TECHNIQUE: Multiplanar, multisequence MR images of the abdomen were obtained, including heavily T2 weighted MRCP images of the biliary system. Rotating maximum intensity projection images of the biliary system were generated. FINDINGS: MRCP: Common bile duct measures approximately 9 mm in diameter. This is consistent with a history of prior cholecystectomy. There are several filling defect in the distal common bile duct likely representing choledocholithiasis although this is not certain. There is mild intrahepatic biliary ductal dilatation consistent with a history of known obstructive jaundice. LIVER: Normal size, contour and signal intensity. No mass. Mild intrahepatic biliary ductal dilatation is noted. GALLBLADDER: Very mild hepatic steatosis diffusely. SPLEEN: Unremarkable. PANCREAS: Unremarkable. ADRENALS: Unremarkable. KIDNEYS: Left lower pole cortical cyst, 2.5 cm diameter. No hydronephrosis. AORTA: No aneurysm. ASCITES: None. OTHER FINDINGS: None. IMPRESSION: Choledocholithiasis. Mildly dilated common bile duct with intrahepatic biliary dilatation. Prior cholecystectomy. No other significant abnormality.
[2018-02-25] MEDS ORDERED: Potassium Chloride 20 mEq ER Tab PO ONE (17:49)
[2018-02-26] MEDS: Levothyroxine 50 MCG TAB PO SCH (05:30)
[2018-02-26] MEDS: Sodium Chloride 0.9% 1,000 ML IV SCH (05:33)
[2018-02-26 07:23] LABS: BASO # 0.01 K/mm3 (0.0-2.0); BASO % 0.2 % (0.0-3.0); EOS # 0.1 (0.0-0.7); EOS % 2.9 % (1.5-5.0); GRAN # 2.45 (1.4-6.5); GRAN % 55.4 % (50.0-68.0); HEMOGLOBIN 10.9 g/dL (12.0-16.0); LYMPH # 1.4 (1.2-3.4); LYMPH % 31.6 % (22.0-35.0); MEAN CORPUSCULAR HEMOGLOBIN 27.2 pg (25.0-35.0); MEAN CORPUSCULAR HGB CONC 32.7 g/dl (31.0-37.0); MEAN PLATELET VOLUME 10.3 fl (7.0-11.0); MONO # 0.4 (0.1-0.6); MONO % 9.9 % (1.0-6.0); RBC 4.01 10^6/uL (3.5-6.1); RED CELL DISTRIBUTION WIDTH 14.5 % (11.5-14.5); WHITE BLOOD COUNT 4.4 10^3/ul (4.5-11.0)
[2018-02-26 07:34] LABS: INR 1.15; PROTHROMBIN TIME 13.3 SECONDS (9.4-12.5)
[2018-02-26 07:54] LABS: ALB/GLOB RATIO 1.1 (1.1-1.8); ALBUMIN 3.5 g/dL (3.0-4.8); ALT/SGPT 411 U/L (7-56); AST/SGOT 182 U/L (14-36); BLOOD UREA NITROGEN 6 mg/dL (7-21); CALCIUM 8.4 mg/dL (8.4-10.5); GFR NON-AFRICAN AMERICAN > 60
[2018-02-26] MEDS: NIFEdipine 30 mg ER Tab PO SCH (09:13)
--- NOTE | 2018-02-26 09:16 | CP.PCM.PN ---
Subjective - Date & Time of Evaluation Date of Evaluation: 02/26/18 Time of Evaluation: 08:00 - Subjective Subjective: Del[facility] Internal Medicine Resident - Progress note for GI service Patient seen and examined this AM. Found to be lying in bed comfortably. Patient without complaints. She is able to tolerate her diet and without abdominal disco mfort. Objective - Vital Signs/Intake and Output Vital Signs (last 24 hours): Temp Pulse Resp BP Pulse Ox 99.2 F 72 20 120/62 95 02/25/18 21:18 02/25/18 21:18 02/25/18 21:18 02/25/18 21:18 02/25/18 21:18 Intake and Output: 02/26/18 02/26/18 06:59 18:59 Intake Total 640 Balance 640 - Medications Medications: Current Medications Hydromorphone HCl (Dilaudid) 0.5 mg IVP Q4H PRN PRN Reason: Pain, moderate (4-7) Last Admin: 02/24/18 14:47 Dose: 0.5 mg Sodium Chloride (Sodium Chloride 0.9%) 1,000 mls @ 80 mls/hr IV .[id number] [facility] Last Admin: 02/26/18 05:33 Dose: 80 mls/hr Levothyroxine Sodium (Synthroid) 50 mcg PO 0600 [facility] Last Admin: 02/26/18 05:30 Dose: 50 mcg Lisinopril (Zestril) 10 mg PO DAILY [facility] Last Admin: 02/25/18 10:45 Dose: 10 mg Nifedipine (Procardia Xl) 30 mg PO DAILY [facility] Last Admin: 02/25/18 10:46 Dose: 30 mg Ondansetron HCl (Zofran Inj) 4 mg IVP Q8H PRN PRN Reason: Nausea/Vomiting Last Admin: 02/24/18 13:50 Dose: 4 mg - Labs Labs: 02/26/18 06:30 02/26/18 06:30 PT 13.3 SECONDS (9.4-12.5) H 02/26/18 06:30 INR 1.15 02/26/18 06:30 APTT 26.5 Seconds (25.1-36.5) 02/23/18 16:30 - Constitutional Appears: No Acute Distress - Head Exam Head Exam: ATRAUMATIC, NORMAL INSPECTION, NORMOCEPHALIC - Eye Exam Eye Exam: EOMI, PERRL - ENT Exam ENT Exam: Mucous Membranes Moist, Normal Oropharynx - Neck Exam Neck Exam: Full ROM - Respiratory Exam Respiratory Exam: Clear to Ausculation Bilateral, NORMAL BREATHING PATTERN - Cardiovascular Exam Cardiovascular Exam: REGULAR RHYTHM, +S1, +S2 - GI/Abdominal Exam GI & Abdominal Exam: Soft, Normal Bowel Sounds. absent: Tenderness - Back Exam Back Exam: NORMAL INSPECTION. absent: CVA tenderness (L), CVA tenderness (R) - Neurological Exam Neurological Exam: Alert, Awake, Normal Gait, Oriented x3 Neuro motor strength exam: Left Upper Extremity: 5, Right Upper Extremity: 5, Left Lower Extremity: 5, Right Lower Extremity: 5 - Psychiatric Exam Psychiatric exam: Normal Affect, Normal Mood - Skin Skin Exam: Dry, Intact Assessment and Plan - Assessment and Plan (Free Text) Assessment: 73 year old female with past meidcal history significant for spinal stenosis, meniere disease, AAA, CVA, HTN, CHF, and HLD who presented with 2 day history of intermittent bilateral sharp lower quadrant abdominal pain associated with nausea and non bloody emesis. Patient nausae and emesis has since resolved and is able to tolerate diet without abdominal pain at this time. Plan: Acute abdominal Pain Transaminitis DM2 HTN Hx of cholecystetcomy Elevated LDH - Etiology: SBO vs. choledocolithiasis - MRCP/MRI: choledocholithiasis. mildly dilated common bile duct with intrahepatic biliary dilatation measuring 9mm. prior cholecystectomy, mild hepatic steatosis diffusely - LFT trending downward - Continue to monitor liver enzymes - Clear liquid diet - ERCP scheduled for today
[2018-02-26] MEDS ORDERED: Iohexol 240 (50 ml) ONE (14:49)
[2018-02-26] MEDS ORDERED: Indomethacin 50 MG Suppository PR ONE (14:57)
[2018-02-26] MEDS ORDERED: Propofol 10 mg/ml Inj (20 ML) ONE (15:35)
[2018-02-26] MEDS ORDERED: Succinylcholine 200 mg/10 ml Inj IV ONE (15:35)
[2018-02-26] MEDS ORDERED: cefTRIAXone 1 gm 1 GM/100 ML BAG IVPB ONE (16:10)
[2018-02-26] MEDS ORDERED: cefTRIAXone (Rocephin) 1 gm Inj ONE (16:12)
[2018-02-26] MEDS ORDERED: Sodium Chloride 0.9% 1,000 ML IV SCH (17:30)
[2018-02-26] MEDS ORDERED: HYDROmorphone 0.5 mg/0.5 ml ISec ONE (17:40)
[2018-02-26] MEDS: HYDROmorphone 0.5 mg/0.5 ml ISec IVP PRN (17:40)
--- NOTE | 2018-02-26 20:26 | PN ---
DATE: 02/26/2018 SUBJECTIVE: The patient has no complaints of any headaches or dizziness. She says abdominal pain is better. PHYSICAL EXAMINATION VITAL SIGNS: Temperature is 98.2, pulse is 71, blood pressure is 167/70, and respirations 18. GENERAL: The patient is lying in bed, flat, comfortable. HEENT: No oral lesion. Anicteric sclerae. Moist mucosa. NECK: No JVD, adenopathy, or thyromegaly. CARDIOVASCULAR: S1 and S2, regular. No murmurs, rubs, or gallops. LUNGS: Clear to auscultation bilaterally. No wheeze, rales, or rhonchi. ABDOMEN: Bowel sounds are positive, soft, nontender and nondistended. EXTREMITIES: No cyanosis, clubbing or edema. LABORATORY DATA: White count of 4.4, hemoglobin 10.9. Creatinine 0.6. ASSESSMENT: 1. Abdominal pain. 2. Choledocholithiasis with dilated common bile duct. 3. Status post cholecystectomy. 4. Transaminitis. 5. Anemia. 6. Hypertension. 7. Hypothyroidism. PLAN: The patient is currently comfortable. Her abdominal pain is under control with Dilaudid that she is taking. The patient is on IV fluids. The patient would like to continue with Synthroid for hypothyroidism. She is on lisinopril for hypertension. I did speak to Dr. Whelan this morning. The patient is going to have repeat blood work done tomorrow. The patient is going to be on ERCP. William Collins MD
[2018-02-27] MEDS: HYDROmorphone 0.5 mg/0.5 ml ISec IVP PRN (00:09)
[2018-02-27] MEDS: Levothyroxine 50 MCG TAB PO SCH (06:03)
--- NOTE | 2018-02-27 06:27 | CP.PCM.PN ---
Objective - Vital Signs/Intake and Output Vital Signs (last 24 hours): Temp Pulse Resp BP Pulse Ox 98.2 F 71 18 167/70 H 99 02/26/18 18:00 02/26/18 18:00 02/26/18 18:00 02/26/18 18:00 02/26/18 18:00 Intake and Output: 02/26/18 02/27/18 18:59 06:59 Intake Total 0 Balance 0 - Medications Medications: Current Medications Hydromorphone HCl (Dilaudid) 0.5 mg IVP Q4H PRN PRN Reason: Pain, moderate (4-7) Last Admin: 02/27/18 00:09 Dose: 0.5 mg Sodium Chloride (Sodium Chloride 0.9%) 1,000 mls @ 100 mls/hr IV .Q10H [facility] Levothyroxine Sodium (Synthroid) 50 mcg PO 0600 [facility] Last Admin: 02/27/18 06:03 Dose: 50 mcg Lisinopril (Zestril) 10 mg PO DAILY [facility] Last Admin: 02/26/18 09:12 Dose: 10 mg Nifedipine (Procardia Xl) 30 mg PO DAILY [facility] Last Admin: 02/26/18 09:13 Dose: 30 mg Ondansetron HCl (Zofran Inj) 4 mg IVP Q8H PRN PRN Reason: Nausea/Vomiting Last Admin: 02/24/18 13:50 Dose: 4 mg - Labs Labs: 02/26/18 06:30 02/26/18 06:30 PT 13.3 SECONDS (9.4-12.5) H 02/26/18 06:30 INR 1.15 02/26/18 06:30 APTT 26.5 Seconds (25.1-36.5) 02/23/18 16:30
[2018-02-27 07:44] LABS: BASO # 0.01 K/mm3 (0.0-2.0); BASO % 0.2 % (0.0-3.0); EOS # 0.1 (0.0-0.7); EOS % 1.1 % (1.5-5.0); GRAN # 3.01 (1.4-6.5); GRAN % 54.7 % (50.0-68.0); HEMOGLOBIN 10.5 g/dL (12.0-16.0); LYMPH % 35.8 % (22.0-35.0); MEAN CELL VOLUME 82.7 fl (80.0-105.0); MEAN CORPUSCULAR HEMOGLOBIN 27.5 pg (25.0-35.0); MEAN CORPUSCULAR HGB CONC 33.2 g/dl (31.0-37.0); MEAN PLATELET VOLUME 9.6 fl (7.0-11.0); MONO # 0.5 (0.1-0.6); MONO % 8.2 % (1.0-6.0); RBC 3.82 10^6/uL (3.5-6.1); RED CELL DISTRIBUTION WIDTH 14.7 % (11.5-14.5); WHITE BLOOD COUNT 5.5 10^3/ul (4.5-11.0)
[2018-02-27 07:49] LABS: INR 1.1; PROTHROMBIN TIME 12.7 SECONDS (9.4-12.5)
[2018-02-27 07:58] VITALS: PULSE 72; RESP 20; TEMP 98.8; O2SAT 96
[2018-02-27 08:05] LABS: ALB/GLOB RATIO 1.1 (1.1-1.8); ALBUMIN 3.3 g/dL (3.0-4.8); ALT/SGPT 298 U/L (7-56); AST/SGOT 109 U/L (14-36); BLOOD UREA NITROGEN 5 mg/dL (7-21); CALCIUM 8.3 mg/dL (8.4-10.5); GFR NON-AFRICAN AMERICAN > 60
[2018-02-27] MEDS: NIFEdipine 30 mg ER Tab PO SCH (10:14)
[2018-02-27 11:02] VITALS: BP 132/68
--- NOTE | 2018-02-27 12:55 | CP.PCM.DIS ---
<AliaCindy - Last Filed: 02/27/18 13:06> Provider - Provider Date of Admission: 02/23/18 18:20 Attending physician: William Collins MD Primary care physician: Geno Shaw DO Consults: GI: Dr. Whelan Time Spent in preparation of Discharge (in minutes): 35 Hospital Course - Lab Results Lab Results: Micro Results 02/23/18 17:05 Blood-Venous Blood Culture - Preliminary NO GROWTH AFTER 3 DAYS 02/23/18 16:25 Blood-Venous Blood Culture - Preliminary NO GROWTH AFTER 3 DAYS Most Recent Lab Values WBC 5.5 10^3/ul (4.5-11.0) D 02/27/18 07:15 RBC 3.82 10^6/uL (3.5-6.1) 02/27/18 07:15 Hgb 10.5 g/dL (12.0-16.0) L 02/27/18 07:15 Hct 31.6 % (36.0-48.0) L 02/27/18 07:15 MCV 82.7 fl (80.0-105.0) 02/27/18 07:15 MCH 27.5 pg (25.0-35.0) 02/27/18 07:15 MCHC 33.2 g/dl (31.0-37.0) 02/27/18 07:15 RDW 14.7 % (11.5-14.5) H 02/27/18 07:15 Plt Count 228 10^3/uL (120.0-450.0) 02/27/18 07:15 MPV 9.6 fl (7.0-11.0) 02/27/18 07:15 Gran % 54.7 % (50.0-68.0) 02/27/18 07:15 Lymph % (Auto) 35.8 % (22.0-35.0) H 02/27/18 07:15 [place] % (Auto) 8.2 % (1.0-6.0) H 02/27/18 07:15 Eos % (Auto) 1.1 % (1.5-5.0) L 02/27/18 07:15 Baso % (Auto) 0.2 % (0.0-3.0) 02/27/18 07:15 Gran # 3.01 (1.4-6.5) 02/27/18 07:15 Lymph # (Auto) 2.0 (1.2-3.4) 02/27/18 07:15 [place] # (Auto) 0.5 (0.1-0.6) 02/27/18 07:15 Eos # (Auto) 0.1 (0.0-0.7) 02/27/18 07:15 Baso # (Auto) 0.01 K/mm3 (0.0-2.0) 02/27/18 07:15 PT 12.7 SECONDS (9.4-12.5) H 02/27/18 07:15 INR 1.10 02/27/18 07:15 APTT 26.5 Seconds (25.1-36.5) 02/23/18 16:30 pO2 41 mm/Hg (30-55) 02/24/18 02:30 VBG pH 7.41 (7.32-7.43) 02/24/18 02:30 VBG pCO2 44.0 (40-60) 02/24/18 02:30 VBG HCO3 27.9 mmol/l (21-28) 02/24/18 02:30 VBG Total CO2 29.3 mmol.L (22-28) H 02/24/18 02:30 VBG O2 Sat (Calc) 75.6 % (40-65) H 02/24/18 02:30 VBG Base Excess 2.7 mmol/L (0.0-2.0) H 02/24/18 02:30 VBG Potassium 3.5 mmol/L (3.6-5.2) L 02/24/18 02:30 Sodium 137.0 mmol/L (132-148) 02/24/18 02:30 Chloride 102.0 mmol/L (98-107) 02/24/18 02:30 Glucose 160 mg/dl (65-105) H 02/24/18 02:30 Lactate 1.7 mmol/L (0.7-2.1) 02/24/18 02:30 FiO2 21.0 % 02/24/18 02:30 Sodium 140 mmol/L (132-148) 02/27/18 07:15 Potassium 3.5 mmol/L (3.6-5.0) L 02/27/18 07:15 Chloride 109 mmol/L (98-107) H 02/27/18 07:15 Carbon Dioxide 24 mmol/L (21-33) 02/27/18 07:15 Anion Gap 10 (10-20) 02/27/18 07:15 BUN 5 mg/dL (7-21) L 02/27/18 07:15 Creatinine 0.7 mg/dl (0.7-1.2) 02/27/18 07:15 Est GFR ( Amer) > 60 02/27/18 07:15 Est GFR (Non-Af Amer) > 60 02/27/18 07:15 POC Glucose (mg/dL) 232 mg/dL (65-110) H 02/27/18 11:00 Random Glucose 120 mg/dL (70-110) H 02/27/18 07:15 Calcium 8.3 mg/dL (8.4-10.5) L 02/27/18 07:15 Phosphorus 3.2 mg/dL (2.5-4.5) 02/25/18 06:00 Magnesium 2.0 mg/dL (1.7-2.2) 02/25/18 06:00 Total Bilirubin 1.2 mg/dL (0.2-1.3) 02/27/18 07:15 Direct Bilirubin 3.9 mg/dL (0.0-0.4) H 02/24/18 13:00 AST 109 U/L (14-36) H D 02/27/18 07:15 ALT 298 U/L (7-56) H 02/27/18 07:15 Alkaline Phosphatase 200 U/L (38-126) H 02/27/18 07:15 Lactate Dehydrogenase 2031 U/L (333-699) H 02/24/18 13:00 Total Creatine Kinase 45 U/L (35-230) 02/23/18 16:30 Troponin I < 0.01 ng/mL 02/23/18 16:30 Total Protein 6.4 g/dL (5.8-8.3) 02/27/18 07:15 Albumin 3.3 g/dL (3.0-4.8) 02/27/18 07:15 Globulin 3.1 gm/dL 02/27/18 07:15 Albumin/Globulin Ratio 1.1 (1.1-1.8) 02/27/18 07:15 Amylase 40 U/L (35-125) 02/25/18 06:00 Lipase 28 U/L (23-300) 02/25/18 06:00 CA 19-9 Antigen 62.4 U/mL (0-37) H 02/25/18 07:00 Venous Blood Potassium 3.5 mmol/L (3.6-5.2) L 02/24/18 02:30 Urine Color Yellow (YELLOW) 02/23/18 18:25 Urine Appearance Clear (CLEAR) 02/23/18 18:25 Urine pH 7.5 (4.7-8.0) 02/23/18 18:25 Ur Specific Saxis 1.015 (1.005-1.035) 02/23/18 18:25 Urine Protein Negative mg/dL (<30 mg/dL) 02/23/18 18:25 Urine Glucose (UA) Negative mg/dL (NEGATIVE) 02/23/18 18:25 Urine Ketones Negative mg/dL (NEGATIVE) 02/23/18 18:25 Urine Blood Negative (NEGATIVE) 02/23/18 18:25 Urine Nitrate Negative (NEGATIVE) 02/23/18 18:25 Urine Bilirubin Negative (NEGATIVE) 02/23/18 18:25 Urine Urobilinogen 4.0 E.U./dL (<1 E.U./dL) H 02/23/18 18:25 Ur Leukocyte Esterase Negative Gee/uL (NEGATIVE) 02/23/18 18:25 Hepatitis A IgM Ab Negative (NEGATIVE) 02/23/18 16:30 Hep Bs Antigen Negative (NEGATIVE) 02/23/18 16:30 Hep B Core IgM Ab Negative (NEGATIVE) 02/23/18 16:30 Hepatitis C Antibody Negative (NEGATIVE) 02/23/18 16:30 - Hospital Course Hospital Course: This is a 73yo AA female with past medical history of HTN, hypothyroidism, cholecystectomy who was admitted for abdominal pain with transaminitis. She was evaluated by GI and was found to have choledocolithiasis with dilated CBD on MRCP. Pain was controlled with IV pain medication. She subsequently had ERCP done with biliary spincterotomy without stent placement. Her LFTs are trending down and pain has resolved. GI recommends repeat ERCP in 3-4 weeks and patient to be placed on Actigal 300 BID. She is tolerating her diet and will follow up with her PMD, Dr. Shaw in 1 week. She will continue her other home medications and follow up with Dr. Whelan as outpatient. - Date & Time of H&P Date of H&P: 02/24/18 Time of H&P: 17:00 Discharge Exam - Head Exam Head Exam: ATRAUMATIC, NORMAL INSPECTION, NORMOCEPHALIC - Eye Exam Eye Exam: Normal appearance, PERRL Pupil Exam: NORMAL ACCOMODATION, PERRL - ENT Exam ENT Exam: Mucous Membranes Moist - Respiratory Exam Respiratory Exam: Clear to PA & Lateral, NORMAL BREATHING PATTERN, UNREMARKABLE. absent: Wheezes, Respiratory Distress - Cardiovascular Exam Cardiovascular Exam: REGULAR RHYTHM, +S1, +S2. absent: Gallop, Rubs, Systolic Murmur - GI/Abdominal Exam GI & Abdominal Exam: Normal Bowel Sounds, Soft, Tenderness (mild RUQ tendness ). absent: Mass, Rigid - Extremities Exam Extremities exam: normal inspection - Neurological Exam Neurological exam: Alert, CN II-XII Intact, Oriented x3 - Psychiatric Exam Psychiatric exam: Normal Affect, Normal Mood - Skin Skin Exam: Dry, Intact, Warm Discharge Plan - Discharge Medications Prescriptions: Ursodiol [Actigall] 300 mg PO BID #60 cap - Follow Up Plan Condition: STABLE Disposition: HOME/ ROUTINE Instructions: Heart Healthy Diet, Low Cholesterol, Saturated Fat, and Trans Fat Diet , Preventing Falls in the Older Adult, Carbohydrate Counting Diet, Pneumococcal Polysaccharide Vaccine (23-Valent), Acute Abdominal Pain (DC) Additional Instructions: 1. Continue home medications 2. Eat a low fat diet. 3. Take Actigall 300 twice per day. 4. Follow up with PMD, Dr. Shaw in 1 week. 5. Follow up with Dr. Whelan as outpatient. Referrals: Geno Shaw DO [Primary Care Provider] - <William Collins - Last Filed: 02/27/18 18:42> Provider - Provider Date of Admission: 02/23/18 18:20 Attending physician: William Collins MD Primary care physician: Geno Shaw DO Hospital Course - Lab Results Lab Results: Micro Results 02/23/18 16:25 Blood-Venous Blood Culture - Preliminary NO GROWTH AFTER 4 DAYS 02/23/18 17:05 Blood-Venous Blood Culture - Preliminary NO GROWTH AFTER 3 DAYS Most Recent Lab Values WBC 5.5 10^3/ul (4.5-11.0) D 02/27/18 07:15 RBC 3.82 10^6/uL (3.5-6.1) 02/27/18 07:15 Hgb 10.5 g/dL (12.0-16.0) L 02/27/18 07:15 Hct 31.6 % (36.0-48.0) L 02/27/18 07:15 MCV 82.7 fl (80.0-105.0) 02/27/18 07:15 MCH 27.5 pg (25.0-35.0) 02/27/18 07:15 MCHC 33.2 g/dl (31.0-37.0) 02/27/18 07:15 RDW 14.7 % (11.5-14.5) H 02/27/18 07:15 Plt Count 228 10^3/uL (120.0-450.0) 02/27/18 07:15 MPV 9.6 fl (7.0-11.0) 02/27/18 07:15 Gran % 54.7 % (50.0-68.0) 02/27/18 07:15 Lymph % (Auto) 35.8 % (22.0-35.0) H 02/27/18 07:15 [place] % (Auto) 8.2 % (1.0-6.0) H 02/27/18 07:15 Eos % (Auto) 1.1 % (1.5-5.0) L 02/27/18 07:15 Baso % (Auto) 0.2 % (0.0-3.0) 02/27/18 07:15 Gran # 3.01 (1.4-6.5) 02/27/18 07:15 Lymph # (Auto) 2.0 (1.2-3.4) 02/27/18 07:15 [place] # (Auto) 0.5 (0.1-0.6) 02/27/18 07:15 Eos # (Auto) 0.1 (0.0-0.7) 02/27/18 07:15 Baso # (Auto) 0.01 K/mm3 (0.0-2.0) 02/27/18 07:15 PT 12.7 SECONDS (9.4-12.5) H 02/27/18 07:15 INR 1.10 02/27/18 07:15 APTT 26.5 Seconds (25.1-36.5) 02/23/18 16:30 pO2 41 mm/Hg (30-55) 02/24/18 02:30 VBG pH 7.41 (7.32-7.43) 02/24/18 02:30 VBG pCO2 44.0 (40-60) 02/24/18 02:30 VBG HCO3 27.9 mmol/l (21-28) 02/24/18 02:30 VBG Total CO2 29.3 mmol.L (22-28) H 02/24/18 02:30 VBG O2 Sat (Calc) 75.6 % (40-65) H 02/24/18 02:30 VBG Base Excess 2.7 mmol/L (0.0-2.0) H 02/24/18 02:30 VBG Potassium 3.5 mmol/L (3.6-5.2) L 02/24/18 02:30 Sodium 137.0 mmol/L (132-148) 02/24/18 02:30 Chloride 102.0 mmol/L (98-107) 02/24/18 02:30 Glucose 160 mg/dl (65-105) H 02/24/18 02:30 Lactate 1.7 mmol/L (0.7-2.1) 02/24/18 02:30 FiO2 21.0 % 02/24/18 02:30 Sodium 140 mmol/L (132-148) 02/27/18 07:15 Potassium 3.5 mmol/L (3.6-5.0) L 02/27/18 07:15 Chloride 109 mmol/L (98-107) H 02/27/18 07:15 Carbon Dioxide 24 mmol/L (21-33) 02/27/18 07:15 Anion Gap 10 (10-20) 02/27/18 07:15 BUN 5 mg/dL (7-21) L 02/27/18 07:15 Creatinine 0.7 mg/dl (0.7-1.2) 02/27/18 07:15 Est GFR ( Amer) > 60 02/27/18 07:15 Est GFR (Non-Af Amer) > 60 02/27/18 07:15 POC Glucose (mg/dL) 232 mg/dL (65-110) H 02/27/18 11:00 Random Glucose 120 mg/dL (70-110) H 02/27/18 07:15 Calcium 8.3 mg/dL (8.4-10.5) L 02/27/18 07:15 Phosphorus 3.2 mg/dL (2.5-4.5) 02/25/18 06:00 Magnesium 2.0 mg/dL (1.7-2.2) 02/25/18 06:00 Total Bilirubin 1.2 mg/dL (0.2-1.3) 02/27/18 07:15 Direct Bilirubin 3.9 mg/dL (0.0-0.4) H 02/24/18 13:00 AST 109 U/L (14-36) H D 02/27/18 07:15 ALT 298 U/L (7-56) H 02/27/18 07:15 Alkaline Phosphatase 200 U/L (38-126) H 02/27/18 07:15 Lactate Dehydrogenase 2031 U/L (333-699) H 02/24/18 13:00 Total Creatine Kinase 45 U/L (35-230) 02/23/18 16:30 Troponin I < 0.01 ng/mL 02/23/18 16:30 Total Protein 6.4 g/dL (5.8-8.3) 02/27/18 07:15 Albumin 3.3 g/dL (3.0-4.8) 02/27/18 07:15 Globulin 3.1 gm/dL 02/27/18 07:15 Albumin/Globulin Ratio 1.1 (1.1-1.8) 02/27/18 07:15 Amylase 40 U/L (35-125) 02/25/18 06:00 Lipase 28 U/L (23-300) 02/25/18 06:00 CA 19-9 Antigen 62.4 U/mL (0-37) H 02/25/18 07:00 Venous Blood Potassium 3.5 mmol/L (3.6-5.2) L 02/24/18 02:30 Urine Color Yellow (YELLOW) 02/23/18 18:25 Urine Appearance Clear (CLEAR) 02/23/18 18:25 Urine pH 7.5 (4.7-8.0) 02/23/18 18:25 Ur Specific Saxis 1.015 (1.005-1.035) 02/23/18 18:25 Urine Protein Negative mg/dL (<30 mg/dL) 02/23/18 18:25 Urine Glucose (UA) Negative mg/dL (NEGATIVE) 02/23/18 18:25 Urine Ketones Negative mg/dL (NEGATIVE) 02/23/18 18:25 Urine Blood Negative (NEGATIVE) 02/23/18 18:25 Urine Nitrate Negative (NEGATIVE) 02/23/18 18:25 Urine Bilirubin Negative (NEGATIVE) 02/23/18 18:25 Urine Urobilinogen 4.0 E.U./dL (<1 E.U./dL) H 02/23/18 18:25 Ur Leukocyte Esterase Negative Gee/uL (NEGATIVE) 02/23/18 18:25 Hepatitis A IgM Ab Negative (NEGATIVE) 02/23/18 16:30 Hep Bs Antigen Negative (NEGATIVE) 02/23/18 16:30 Hep B Core IgM Ab Negative (NEGATIVE) 02/23/18 16:30 Hepatitis C Antibody Negative (NEGATIVE) 02/23/18 16:30 - Hospital Course Hospital Course: Pt seen and examined. I have reviewed the note of the medical social worker and agree with it. I have discussed the assessment and plan with the resident. I have reviewed the patient's labs and medications. Pt
--- NOTE | 2018-02-27 16:48 | CP.PCM.PN ---
Addendum entered and electronically signed by Chandler Del Rosario DO 02/27/18 16:52: Actigall 300mg BID should be taken as an outpt. Original Note: <Chandler Del Rosario - Last Filed: 02/27/18 16:50> Subjective - Date & Time of Evaluation Date of Evaluation: 02/27/18 Time of Evaluation: 16:44 - Subjective Subjective: GI Fellow PGY4, Patient tolerating diet. Minimal abdominal pain. Passing flatus. No complaints, feels ready to go home. Objective - Vital Signs/Intake and Output Vital Signs (last 24 hours): Temp Pulse Resp BP Pulse Ox 98.8 F 72 20 132/68 96 02/27/18 06:00 02/27/18 10:15 02/27/18 06:00 02/27/18 10:15 02/27/18 06:00 Intake and Output: 02/27/18 02/27/18 06:59 18:59 Intake Total 0 1450 Balance 0 1450 - Medications Medications: Current Medications Hydromorphone HCl (Dilaudid) 0.5 mg IVP Q4H PRN PRN Reason: Pain, moderate (4-7) Last Admin: 02/27/18 00:09 Dose: 0.5 mg Sodium Chloride (Sodium Chloride 0.9%) 1,000 mls @ 100 mls/hr IV .Q10H [facility] Levothyroxine Sodium (Synthroid) 50 mcg PO 0600 [facility] Last Admin: 02/27/18 06:03 Dose: 50 mcg Lisinopril (Zestril) 10 mg PO DAILY [facility] Last Admin: 02/27/18 10:15 Dose: 10 mg Nifedipine (Procardia Xl) 30 mg PO DAILY [facility] Last Admin: 02/27/18 10:14 Dose: 30 mg Ondansetron HCl (Zofran Inj) 4 mg IVP Q8H PRN PRN Reason: Nausea/Vomiting Last Admin: 02/24/18 13:50 Dose: 4 mg - Labs Labs: 02/27/18 07:15 02/27/18 07:15 PT 12.7 SECONDS (9.4-12.5) H 02/27/18 07:15 INR 1.10 02/27/18 07:15 APTT 26.5 Seconds (25.1-36.5) 02/23/18 16:30 - Constitutional Appears: Non-toxic, No Acute Distress - Head Exam Head Exam: NORMAL INSPECTION - Eye Exam Eye Exam: Normal appearance - ENT Exam ENT Exam: Mucous Membranes Moist, Normal Exam - Respiratory Exam Respiratory Exam: Clear to Ausculation Bilateral, NORMAL BREATHING PATTERN - Cardiovascular Exam Cardiovascular Exam: REGULAR RHYTHM, +S1, +S2 - GI/Abdominal Exam GI & Abdominal Exam: Soft, Normal Bowel Sounds. absent: Tenderness - Extremities Exam Extremities Exam: Normal Inspection - Neurological Exam Neurological Exam: Alert, Awake, Oriented x3 - Psychiatric Exam Psychiatric exam: Normal Affect, Normal Mood - Skin Skin Exam: Dry, Normal Color Assessment and Plan - Assessment and Plan (Free Text) Assessment: 73F with hx of cholecystectomy presenting with RUQ abdominal pain and elevated liver tests. #Acute abdominal pain #Cholidocolithiasis #Elevated liver enzymes #DM #HTN #Hx of Cholecystectomy #Elevated LDH PLAN: -MRCP showing stones in the CBD. -ERCP 02/27/18 with visualization of stones, sphincterotomy, balloon sweep and plastic stent placement -Hold metformin (recent contrast) -OK to discharge home -Follow up with Dr. Whelan in 2 weeks for ERCP to remove stent <Rebecca Whelan V - Last Filed: 02/27/18 23:18> Objective - Vital Signs/Intake and Output Vital Signs (last 24 hours): Temp Pulse Resp BP Pulse Ox 98.8 F 72 20 132/68 96 02/27/18 06:00 02/27/18 10:15 02/27/18 06:00 02/27/18 10:15 02/27/18 06:00 Intake and Output: 02/27/18 02/28/18 18:59 06:59 Intake Total 1450 Balance 1450 - Labs Labs: 02/27/18 07:15 02/27/18 07:15 PT 12.7 SECONDS (9.4-12.5) H 02/27/18 07:15 INR 1.10 02/27/18 07:15 APTT 26.5 Seconds (25.1-36.5) 02/23/18 16:30 Attending/Attestation - Attestation I have personally seen and examined this patient.: Yes I have fully participated in the care of the patient.: Yes I have reviewed all pertinent clinical information, including history, physical exam and plan: Yes Notes (Text): This is an addendum to GI progress report dictated by the GI Fellow.The patient was seen and examined earlier. Medical records, lab studies, imagings were reviewed. Last 24 hours events reviewed. Agreed with the above treatment plan as outlined in GI Fellow 's notes with the addition of the following Status post ERCP remove of the stone and placement of the stent elevated CA 19-[address] in about 3 weeks time for removal of the stent and clearance of the CBD stone/sludge Advised to followup with the PCP Advised to followup in our office in ten days 02/27/18 23:16 02/27/18 23:18
--- NOTE | 2018-02-28 12:32 | RAD ---
Date of service: 02/26/2018 PROCEDURE: ERCP HISTORY: ? CBD OBST COMPARISON: 02/25/2018. MRCP. Summary of findings on the comparison examination: Choledocholithiasis. Mildly dilated common duct with intrahepatic bile duct dilatation. TECHNIQUE: Standard protocol for this study/examination. FINDINGS: Total fluoroscopic time (continuous mode) utilized during the procedure 726.8 (seconds). Total exam DLP: 150.18 and (mGy). IMPRESSION: Submitted images from the current procedure: 6.0
== END 2018-02-27 17:01 | disposition home or self-care (01) | DRG 445 ==
LOC: ED 14:34 → ERH 18:20 → 5RNO 22:23
PROVIDERS: ADMIT Internal Medicine Nephrology; ATTEND Internal Medicine Nephrology
PROC: 0FC98ZZ Extirpation of Matter from Common Bile Duct, Via Natural or Artificial Opening Endoscopic (ICD-10-PCS; principal; 2018-02-26 15:00)
DX: K80.50 Calculus of bile duct without cholangitis or cholecystitis without obstruction (principal); R17 Unspecified jaundice; I11.0 Hypertensive heart disease with heart failure; I50.9 Heart failure, unspecified; E87.6 Hypokalemia; E11.9 Type 2 diabetes mellitus without complications; E03.9 Hypothyroidism, unspecified; D64.9 Anemia, unspecified; E78.00 Pure hypercholesterolemia, unspecified; E78.5 Hyperlipidemia, unspecified; Z79.84 Long term (current) use of oral hypoglycemic drugs; Z87.891 Personal history of nicotine dependence; Z86.73 Personal history of transient ischemic attack (TIA), and cerebral infarction without residual deficits

== ENCOUNTER 2018-03-26 09:36 | Day surgery (SDC) | payer MEDICARE, BC, OTHER ==
[2018-03-26 10:49] LABS: BASO # 0.02 K/mm3 (0.0-2.0); BASO % 0.5 % (0.0-3.0); EOS # 0.1 (0.0-0.7); EOS % 3.3 % (1.5-5.0); GRAN # 1.46 (1.4-6.5); GRAN % 34.2 % (50.0-68.0); LYMPH # 2.3 (1.2-3.4); MEAN CELL VOLUME 84.2 fl (80.0-105.0); MEAN CORPUSCULAR HEMOGLOBIN 27.8 pg (25.0-35.0); MONO # 0.3 (0.1-0.6); RBC 4.68 10^6/uL (3.5-6.1); WHITE BLOOD COUNT 4.3 10^3/ul (4.5-11.0)
[2018-03-26 10:54] LABS: INR 1.03; PARTIAL THROMBOPLASTIN TIME 27.3 Seconds (25.1-36.5); PROTHROMBIN TIME 11.8 SECONDS (9.4-12.5)
[2018-03-26 10:58] LABS: ALB/GLOB RATIO 1.3 (1.1-1.8); ALBUMIN 4.4 g/dL (3.0-4.8); ALT/SGPT 30 U/L (7-56); AMYLASE 75 U/L (35-125); AST/SGOT 29 U/L (14-36); BLOOD UREA NITROGEN 11 mg/dL (7-21); CALCIUM 9.7 mg/dL (8.4-10.5); GAMMA GLUTAMYL TRANSPEPTIDASE 111 U/L (8-78); GFR NON-AFRICAN AMERICAN > 60; LIPASE 73 U/L (23-300)
[2018-03-26] MEDS ORDERED: Indomethacin 50 MG Suppository PR ONE (12:20)
[2018-03-26] MEDS ORDERED: Iohexol 240 (50 ml) ONE (12:23)
[2018-03-26] MEDS ORDERED: cefTRIAXone (Rocephin) 1 gm Inj ONE (12:26)
[2018-03-26] MEDS ORDERED: Propofol 10 mg/ml Inj (20 ML) ONE (12:38)
[2018-03-26] MEDS ORDERED: Lidocaine 1% Inj (20ml) ONE (12:39)
[2018-03-26] MEDS ORDERED: Sevoflurane - Inhalation Anesthetic Liq (250 ml) ONE (12:43)
[2018-03-26] MEDS ORDERED: Neostigmine Methylsulfate 3mg/3ml Syringe IV ONE (14:31)
[2018-03-26] MEDS ORDERED: Sodium Chloride 0.9% 1,000 ML IV SCH (15:00)
[2018-03-26 15:54] VITALS: BP 132/70; PULSE 69; RESP 19; TEMP 97.5; O2SAT 96
--- NOTE | 2018-03-27 16:28 | RAD ---
Date of service: 03/26/2018 PROCEDURE: ERCP HISTORY: ? CBD OBST COMPARISON: 02/26/2018 TECHNIQUE: Standard protocol for this study/examination. FINDINGS: Total fluoroscopic time (continuous mode) utilized during the procedure 149.3 (seconds). Total exam DLP: 29.30 (mGy). IMPRESSION: Submitted images from the current procedure: 7.0
== END 2018-03-26 16:34 | disposition home or self-care (01) ==
LOC: ENDO 09:36
PROVIDERS: ATTEND Internal Medicine Gastroenterology
DX: K80.50 Calculus of bile duct without cholangitis or cholecystitis without obstruction (principal); K29.70 Gastritis, unspecified, without bleeding; E11.9 Type 2 diabetes mellitus without complications
CPT/HCPCS: 36415; 43264; 43275; 74330; 80053; 82150; 82977; 83690; 85025; 85610; 85730; C1726; C1876; J0696; J2405; J2704; J2710; J3010; J7030; J7040; Q9966

== ENCOUNTER 2018-06-18 10:44 | Day surgery (SDC) | payer MEDICARE ==
[2018-06-18] MEDS ORDERED: Sodium Chloride 0.9% 1,000 ML IV SCH (11:15)
[2018-06-18] MEDS ORDERED: Propofol 10 mg/ml Inj (20 ML) ONE (12:22)
[2018-06-18 13:46] VITALS: TEMP 97.6
[2018-06-18 13:47] VITALS: BP 151/68; PULSE 58; RESP 16; O2SAT 99
== END 2018-06-18 14:27 | disposition home or self-care (01) ==
LOC: ENDO 10:44
PROVIDERS: ATTEND Internal Medicine Gastroenterology
DX: Z12.11 Encounter for screening for malignant neoplasm of colon (principal); I10 Essential (primary) hypertension; K57.30 Diverticulosis of large intestine without perforation or abscess without bleeding; K64.8 Other hemorrhoids; K64.4 Residual hemorrhoidal skin tags; K62.1 Rectal polyp
CPT/HCPCS: 45380; 82948; 88305; J2001; J2704; J7030; J7040

== ENCOUNTER 2018-07-09 11:37 | Outpatient (CLI) | payer MEDICARE | END 2018-07-09 11:38 | disposition home or self-care (01) | LOC: CARDIO 11:37 ==